=== PATIENT | female | born 1975 | race Caucasian/White ===

== ENCOUNTER → 2018-01-01 14:06 | Outpatient (CLI) | payer BC, SELFPAY ==
[2018-01-08 15:16] LABS: HPV Reflexed? NOT INDICATED
== END ==
PROVIDERS: Visit Provider Obstetrics & Gynecology
DX: Z12.4 Encounter for screening for malignant neoplasm of cervix (principal)
CPT/HCPCS: 88175; G0145

== ENCOUNTER → 2018-01-25 14:19 | Outpatient (CLI) | payer BC, SELFPAY | PROVIDERS: Family Provider Family Medicine; PCP Family Medicine; Visit Provider Obstetrics & Gynecology | DX: Z12.31 Encounter for screening mammogram for malignant neoplasm of breast (principal) | CPT/HCPCS: 77063; 77067 ==

== ENCOUNTER 2018-02-13 10:25 | Day surgery (SDC) | payer BC, SELFPAY ==
[2018-02-13] VITALS (9 sets, daily range): BP systolic 121–148; BP diastolic 81–93; PULSE 52–92; RESP 16; TEMP 36.6–36.8; O2SAT 92–99; BMI 36.3
[2018-02-13 10:49] LABS: Internal QC Validated? YES +Cl - CLEAR BKGD
[2018-02-13 10:52] LABS: Pregnancy, Urine Negative Negative
[2018-02-13 10:59] LABS: Hematocrit 40.9 % (37-47); Hemoglobin 13.6 g/dl (12.0-15.0); Mean Corp Hgb Conc 33.3 g/gl (32-36); Mean Corpuscular Hgb 29.5 pg (27.0-32.0); Mean Corpuscular Volume 88.7 fL (81-99); Mean Platelet Vol. 9.5 fl (6.2-12.0); Platelet Count 248 K/mm3 (150-450); RBC Distribution Width CV 12.4 % (11.6-14.6); RBC Distribution Width SD 39.7 fl (35.1-43.9); Red Blood Count 4.61 M/mm3 (4.2-5.4); White Blood Count 6.9 K/mm3 (4.4-11.0)
[2018-02-13 11:06] LABS: Scan Indicated on CBC? Y/N NO
--- NOTE | 2018-02-13 12:00 | EMB_PTH ---
PATIENT: WICHO MERIDA LOC: [facility] [place][id number] AGE/SX: 42/F ROOM: RE02/13/[address]: Dr. Tianna Ann MD : 1975 BED: DIS: 02/13/2018 SPEC #: [id number] RECD: 02/13/18 13:50 STATUS: ROBERT MANN #: [id number] ROSA: 02/13/18 12:[address]: Tianna Ann DEPT: SURGICAL PATHOLOGY RECD BY: Mustapha Crespo ENTERED: 02/13/18 14:10 SP TYPE: ENDOM BX/C JACQUELINE DR: Dr. Amina Fernándze MD Tissues: Endometrium, NOS Procedures: Surgery Specimen Level IV HEADER OPERATION: Hysterectomy, D & C, Debra PRE-OP DIAGNOSIS: Menorrhagia TISSUE SUBMITTED: Endometrial curettings MICROSCOPIC DIAGNOSIS Endometrium, curettings: Secretory endometrium. AM:venkata 02/14/18 MICROSCOPIC DESCRIPTION Slides are reviewed. GROSS DESCRIPTION Received in fixative is one container labeled with the patient's name and designated endometrial curettings. The specimen consists of multiple irregular fragments of red-ayala soft tissue that in aggregate measure 2 x 1.5 x 0.2 cm. The specimen is totally submitted in one cassette. / AM:venkata 02/13/18 TC:5 CPT: 43555
--- NOTE | 2018-02-13 12:00 | PCM.DC.D&C ---
Discharge Diet: No Restrictions Discharge Activity: May not drive while taking narcotic pain medications., May Shower, May Take a Tub Bath Return to work on:: 02/15/18 May resume sexual activity in: 1 week Call your doctor if you observe: Fever of 101 or Higher, Inability to have a bowel movement, Uncontrolled pain Allergies/Adverse Reactions: Allergies No Known Allergies Allergy (Verified 02/06/18 15:03) Medications to take at Discharge L.acidoph,Paracasei, B.lactis [Probiotic] 1 each PO QODAY 02/06/18 Multivits,Ca,Minerals/Iron/FA [Women's Daily Formula Caplet] 1 each PO DAILY 02/06/18 Oxycodone [Oxyir] 5 - 10 mg PO Q6H PRN PRN 2 Days #8 tablet 02/13/18 The following prescriptions were given: Oxycodone [Oxyir] 5 - 10 mg PO Q6H PRN PRN 2 Days #8 tablet PRN Reason: Mod-Severe Pain (4-10/10) Primary Care Physician: Amina Fernández MD [Primary Care Provider] - Test Results: Test results from this visit will be discussed in further detail at your follow-up appointment, if applicable. Please Follow Up With: Tianna Ann MD - [phone] When: in 2 wk for postop check up. Proposed Discharge Date: 02/13/18
--- NOTE | 2018-02-13 13:13 | PCM.OP.BLANK ---
Operative Report Date of Procedure: 02/13/18 PROCEDURE: Hysteroscopy, Dilation and curettage, Debra endometrial ablation Preoperative Diagnosis: Excessive bleeding in premenopause, menorrhagia Postop diagnosis: Excessive bleeding in premenopause, menorrhagia Anesthesia: MAC IV sedation, Alycia Covarrubias CRNA Paracervical block 10 cc of 1% lidocaine with 1: 100,000 epinephrine Surgeon: Tianna Ann MD EBL: Minimal for case Drains: Red Niño, minimal clear yellow urine Complications: none Fluids: replacement Findings: Nonparous appearing cervix Normal appearing , fluffy endometrium. Tubal ostia visualized bilaterally. Narrative account After the R,B,Alternatives of the procedure were reviewed with the patient , informed consent was obtained. The patient was taken to the operating room with an IV running and placed in dorsal supine position on the operating table. She was given general anesthesia, and repositioned to the dorsal lithotomy position and prepped and draped in the usual sterile fashion. A graves speculum was placed into the vagina and the cervix was brought into view. The cervix was nonparous appearing. A paracervical block was instilled as above. A single toothed tenaculum was applied to the anterior lip of the cervix. The cervix was then sequentially dilated to allow admission of the hysteroscope into the endometrial cavity. The hysteroscopy was performed with findings noted as above. Photos were taken showing both tubal ostia and a fluffy appearing endometrium. A sharp curettage was performed and multiple small pieces of tissue were withdrawn and set aside for later pathology review. Upon completion of the D and C, the Debra endometrial ablation device was placed into the uterus to the fundus, the endometrial canal length was 5.5 cm. The balloon seal at the cervix was inflated and the CO2 test was passed. The Debra endometrial ablation cycle was then completed, and the device was withdrawn. Excellent hemostasis was noted. The single toothed tenaculum was removed from the cervix and a RayTec was used to remove any remaining tissue and blood from the upper vagina and cervix. The procedure was terminated. The speculum was removed. The patient was returned to dorsal supine position and awakened from general anesthesia, and transferred to the recovery room bed in stable condition after tolerating the procedure well. Sponge, lap, needle and instrument counts were correct x two. Medications given intraoperatively included 10cc of 1% lidocaine with 1:100,000 epinephrine. Toradol 30 mg IV x one. For a complete listing of medications given preop and intraoperatively , please see the anesthesia record.
[2018-02-13] MEDS: oxyCODONE 5 MG Tablet PO (13:53)
== END 2018-02-13 14:13 | disposition home or self-care (01) ==
LOC: SDC 10:26 → AC 10:27
PROVIDERS: Family Provider Family Medicine; PCP Family Medicine; Visit Provider Obstetrics & Gynecology
PROC: 0U5B8ZZ Destruction of Endometrium, Via Natural or Artificial Opening Endoscopic (ICD-10-PCS; CPT 58558; principal; 2018-02-13 11:45)
DX: N92.4 Excessive bleeding in the premenopausal period (principal)
CPT/HCPCS: 58563; 81025; 85027; 88305; J7120; J2405

== ENCOUNTER → 2018-05-01 12:30 | Outpatient (CLI) | payer BC, SELFPAY ==
--- NOTE | 2018-05-01 12:40 | MRI_ITS ---
STUDY: MRI BRAIN WITH AND WITHOUT CONTRAST REASON FOR EXAM: Female, 43 years old. Dizziness with bilateral tinnitus TECHNIQUE: Standardized multiplanar fat and water weighted pulse sequences were obtained. 10 ml of Gadavist contrast material was administered intravenously for the contrast portion of the examination. COMPARISON: None. FINDINGS: Normal size of the ventricles and extra-axial spaces for the patient's age. Minor periventricular white matter ischemic changes greater in the right cerebral hemisphere without mass effect or restricted diffusion Normal bilateral basal ganglia. Normal thalami. There is no extra-axial fluid accumulation. Normal flow voids within the major intracranial circulation suggesting patency by spin echo criteria. Normal venous enhancement. There is no enhancing intra-axial or extra-axial abnormality. Normal sella turcica, pituitary gland, infundibular stalk, optic chiasm and hypothalamus. Normal tectal plate and pineal gland. Normal midbrain, irma and medulla. Normal cerebellum. Normal basal cisterns. Normal bilateral temporal bones. Normal bilateral internal auditory canals. No demonstrated orbital abnormality, within the constraints of a routine brain study. There is mucosal thickening of the maxillary and ethmoid sinuses bilaterally.. Normal calvarium and skull base. Normal visualized soft tissue structures. Normal visualized upper cervical spine. MRI/Brain W/WO Contrast IMPRESSION: Minor periventricular white matter ischemic changes without evidence for acute infarct No evidence for acoustic or vestibular schwannoma Electronically Signed: Kevin Lee MD at 16:34 EST , Service support ,
== END ==
PROVIDERS: Family Provider Family Medicine; PCP Family Medicine; Referring Provider Otolaryngology Otolaryngology/Facial Plastic Surgery; Visit Provider Otolaryngology Otolaryngology/Facial Plastic Surgery
DX: R42 Dizziness and giddiness (principal)
CPT/HCPCS: 70553; A9585

== ENCOUNTER 2018-12-13 09:47 | Emergency (ER) | payer BC, SELFPAY ==
[2018-12-13 09:48] VITALS: BP 163/89; PULSE 85; RESP 18; TEMP 37; O2SAT 98; BMI 34.8
--- NOTE | 2018-12-13 09:56 | CT_ITS ---
STUDY: CT ABDOMEN AND PELVIS WITH CONTRAST REASON FOR EXAM: Female, 43 years old. RADIATION DOSAGE (If Supplied By Facility): CTDIvol = ( 20.90 ) mGy, DLP = ( 1530.39 ) mGycm TECHNIQUE: Transaxial images were obtained from the dome of the diaphragm to the symphysis pubis without oral contrast. 100 IV Isovue 300 was administered. Sagittal and coronal images were reconstructed. Individualized dose optimization techniques were used for this CT. COMPARISON: None. FINDINGS: The visualized lung bases are unremarkable. The visualized portions of the heart are within normal limits. The liver and spleen are normal in size and attenuation no focal lesion or abnormal enhancement. The gallbladder is unremarkable Normal bilateral adrenal glands. Normal right kidney. Normal left kidney. No hydronephrosis is also formation seen in either kidney. Normal visualized stomach. Normal small intestine. Are within normal limits. There is diverticular disease involving the descending and sigmoid colon without obvious diverticulitis. The appendix is visualized and appears normal. No evidence of mesenteric or periaortic lymphadenopathy. Normal abdominal aorta. Normal inferior vena cava. Normal retroperitoneum. Normal urinary bladder. Normal abdominal wall. Normal osseous structures. There is evidence also pelvic congestion manifested by dilated veins particularly in the left adnexal region associated with dilated left gonadal vein that is draining into the left renal vein. Urinary bladder and uterus are unremarkable. CT/Abdomen/Pelvis W IV Cont ONLY IMPRESSION: No evidence of diverticulosis of the descending and sigmoid colon without diverticulitis Evidence of venous congestion left side of the pelvis as mentioned. Electronically Signed: Ruel Mcleod, at 11:12 EDT Tel , Service support ,
[2018-12-13 10:14] LABS: Mucous, Urine 0 SEEN /hpf (<or=2+); White Blood Cells 0 SEEN /hpf (0-5)
[2018-12-13] MEDS: 0.9% Normal Saline 1,000 ML 1000 ML IV (10:15)
[2018-12-13 10:17] LABS: Color, Urine Yellow (Yellow); Glucose, Dipstick Normal (Normal); Ketone-Dipstick Negative (Negative); Leukocyte Esterase-Dipstick Negative /ul (Negative); Nitrite-Dipstick Negative (Negative); Occult Blood-Urine 10 /ul (Negative); Protein-Dipstick 15 mg/dl (Negative); Specific Gravity, Urine 1.015 (1.002-1.030); Urine Bilirubin Dipstick Negative (Negative); Urine Clarity Sl. Cloudy (Clear); Urine Urobilinogen 1 mg/dl (Normal)
[2018-12-13] MEDS: Ondansetron 4 MG/2 ML Vial IV (10:17)
[2018-12-13] MEDS: Ketorolac 30 MG/ML Syringe IV (10:17)
--- NOTE | 2018-12-13 10:17 | ED.DCSUM_ITS ---
- ER Visit Summary Date of Service: 12/13/18 Chief Complaint: Abdominal pain, nausea History of Present Illness: The patient is a 43 F who is otherwise healthy with only surgical history of prior resents to the emergency department abdominal pain and nausea. The patient states that about 3 days ago, she began have some cramping in the suprapubic area. She also had some increasing urinary frequency. She has over the past 2 days, she is been increasingly nauseated. She states the pain has been almost like a band across her lower abdomen. She felt that she was constipated. She took a stool softener with little improvement. She has been having some lower back pain also. She denies any fevers or chills. She is on no other daily medication. Physical Examination: Vital signs reviewed General: Well-nourished, well-developed Head: Normocephalic, atraumatic Eyes: Pupils equal and reactive, extraocular muscles intact Neck, supple, no lymphadenopathy Heart: Regular rate and rhythm Respiratory: No distress, clear bilaterally Abdomen: Soft, nontender, nondistended, no peritoneal signs Back: Nontender Extremities: Nontender, no edema, no cords Skin: Normal color no rash Neuro: Alert and oriented, no focal or lateralizing deficits Test Results: [] Emergency Department Course and Treatment: Screening labs obtained. Is unremarkable. Urine shows no evidence of infection. CT demonstrates divertic ulosis, but no definitive evidence of diverticulitis. However, the patient had constipation, left lower quadrant pain, nausea. I do feel the most prudent thing will be to treat her for an early diverticulitis flare. I discussed this with the patient she is comfortable with this plan. She will be started on Cipro and Flagyl. She will be discharged home. Treatment Plan: [] Disposition: Discharged Impression: 1. Acute diverticulitis This note was generated with [employer] dictation software. It may contain incorrect words, spelling, and punctuation that were not noted in review of the chart prior to signing ED Disposition - Plan for ED Patient: Disposition: Home or Assisted Living Instructions: Diverticulitis Prescriptions: Ciprofloxacin [Cipro] 500 mg PO BID #14 tab Prescription Printed Docusate Sodium [Colace] 100 mg PO DAILY #20 cap Prescription Printed metroNIDAZOLE [Flagyl] 500 mg PO Q8H #21 tab Prescription Printed Referrals: Amina Fernández MD [Primary Care Provider] -
[2018-12-13 10:19] LABS: Internal QC Validated? YES +Cl - CLEAR BKGD; Pregnancy, Urine Negative Negative
[2018-12-13 10:20] LABS: Absolute Lymphocyte Count 2.01 X10^3/ul (0.83-4.51); Absolute Neutrophil Count 3.5 X10^3/uL (2.0-7.7); Basophil# 0.01 X10^3/uL; Basophil% 0.2 % (0-1); Eosinophil# 0.15 X10^3/uL; Eosinophils% 2.4 % (0-5); Hematocrit 38.3 % (37-47); Hemoglobin 13.1 g/dl (12.0-15.0); Lymphocyte # 2.01 X10^3/ul (4.0); Lymphocyte % 32.3 % (19-41); Mean Corp Hgb Conc 34.2 g/gl (32-36); Mean Corpuscular Volume 87.8 fL (81-99); Mean Platelet Vol. 9.6 fl (6.2-12.0); Monocyte# 0.58 X10^3/uL; Monocyte% 9.3 % (0-10); Neutrophil # 3.46 X10^3/uL (2.7-7.7); Neutrophil % 55.6 % (47-70); POSITIVE COUNT NO; POSITIVE DIFFERENTIAL NO; POSITIVE MORPHOLOGY NO; Platelet Count 285 K/mm3 (150-450); RBC Distribution Width CV 12.3 % (11.6-14.6); RBC Distribution Width SD 38.8 fl (35.1-43.9); Red Blood Count 4.36 M/mm3 (4.2-5.4); White Blood Count 6.2 K/mm3 (4.4-11.0)
[2018-12-13 10:24] LABS: Bacteria 1+ /hpf (None Seen); Red Blood Cells-Urine 0-5 SEEN /hpf (0-5); Squamous Epithelial Cells - UA 5-10 SEEN /hpf (5-10)
[2018-12-13 10:34] LABS: AST(SGOT) 15 U/L (15-37); Alanine Aminotransfer ALT/SGPT 27 U/L (13-56); Albumin, Serum 3.8 g/dL (3.2-5.0); Alkaline Phosphatase 59 U/L (45-117); Anion Gap 4 (5-15); BUN 14 mg/dL (7-18); Bilirubin, Direct 0.13 mg/dL (0.00-0.30); Calcium,Total 9.6 mg/dL (8.5-10.1); Chloride 106 mmol/L (98-107); Creatinine, Serum 0.78 mg/dL (0.55-1.02); EST Glomerular Filtration Rate 87 mL/min (>60); Est Glom Filt Rate - Afr Amer 105 mL/min (>60); Estimated Creatinine Clearance 81.96 ml/min; Glucose 97 mg/dL (74-106); Lipase 149 U/L (73-393); Potassium 3.9 mmol/L (3.5-5.1); Protein, Total 7.8 g/dL (6.4-8.2); Sodium Level 139 mmol/L (136-145)
[2018-12-13] MEDS: Ciprofloxacin 500 MG Tablet PO (11:30)
[2018-12-13] MEDS: metroNIDAZOLE 500 MG Tablet PO (11:30)
== END 2018-12-13 11:36 | disposition home or self-care (01) ==
LOC: ED 10:02
PROVIDERS: Emergency Provider Emergency Medicine; Family Provider Family Medicine; PCP Family Medicine
DX: K57.92 Diverticulitis of intestine, part unspecified, without perforation or abscess without bleeding (principal)
CPT/HCPCS: 74177; 80048; 80076; 81001; 81025; 83690; 85025; 96361; 96374; 96375; 99284; J7030; Q9967; A4216; J2405

== ENCOUNTER → 2019-05-16 09:29 | Outpatient (CLI) | payer BC, SELFPAY ==
[2019-05-16 12:20] LABS: Anion Gap 8 (5-15); BUN 10 mg/dL (7-18); BUN/Creat Ratio 13.6 RATIO (10-20); Calcium,Total 9.5 mg/dL (8.5-10.1); Chloride 104 mmol/L (98-107); Cholesterol 200 mg/dL (200); Creatinine, Serum 0.74 mg/dL (0.55-1.02); EST Glomerular Filtration Rate 92 mL/min (>60); Est Glom Filt Rate - Afr Amer 111 mL/min (>60); Glucose 130 mg/dL (74-106); High Density Lipoprotein 38 mg/dL; Potassium 3.9 mmol/L (3.5-5.1); Sodium Level 139 mmol/L (136-145); Triglycerides 148 mg/dL; Very Low Density Lipoprotein 30 mg/dL (5-40)
== END ==
PROVIDERS: Family Provider Family Medicine; PCP Family Medicine; Referring Provider Family Medicine; Visit Provider Family Medicine
DX: R03.0 Elevated blood-pressure reading, without diagnosis of hypertension (principal)
CPT/HCPCS: 36415; 80048; 80061

== ENCOUNTER → 2019-05-21 15:35 | Outpatient (CLI) | payer BC, SELFPAY ==
[2019-05-26 12:07] LABS: Age Gdln ACOG Testing 30-65 (.)
[2019-05-26 16:23] LABS: HPV APTIMA, High Risk Negative (Negative); HPV Reflexed? YES, CHARGE PATIENT
== END ==
PROVIDERS: Visit Provider Obstetrics & Gynecology
DX: Z12.4 Encounter for screening for malignant neoplasm of cervix (principal)
CPT/HCPCS: 87624; 88175; G0145

== ENCOUNTER → 2019-06-02 13:56 | Outpatient (CLI) | payer BC, SELFPAY ==
--- NOTE | 2019-06-02 13:58 | BI_ITS ---
MAMMOGRAPHY - BILATERAL SCREENING REASON FOR EXAM: Female, 44 years old. Routine annual screening examination. PERTINENT HISTORY: Mother with breast cancer. Grandmother with breast cancer. TECHNIQUE: Digital bilateral breast ros (3D mammographic acquisition) in the CC and MLO projections. 2-D mediolateral oblique (MLO) and craniocaudad (CC) views of both breasts were obtained. CAD: Full Field Digital Mammography with Computer Added Detection was performed. COMPARISON: Comparison is made with prior study dated January 25, 2018. FINDINGS: Breast Composition: The breasts are heterogeneously dense, which may obscure small masses. There are no dominant masses or suspicious calcifications. Stable small bilateral axillary lymph nodes. No other significant abnormalities are identified. There has been no significant change since the prior study. BI/SCREEN MAMM (CAD) W/ROS BILAT IMPRESSION: Stable bilateral screening mammogram. Yearly follow-up mammogram recommended. (A) ASSESSMENT CATEGORY: BIRADS Category 2: Benign. A letter regarding these results will be sent to the patient by the facility within 30 days. Approximately 10% of breast cancers are not detected by mammography. A normal mammogram should not delay biopsy of a clinically suspicious abnormality. [id number] Electronically Signed: Vitor Patricio, at 15:02 EST , Service support ,
--- NOTE | 2019-06-02 13:58 | US_ITS ---
STUDY: ULTRASOUND BREAST - RIGHT REASON FOR EXAM: Female, 44 years old. Abnormal mammogram. TECHNIQUE: Axial and longitudinal images of the RIGHT breast were performed with a high resolution ultrasound transducer. # OF IMAGES: 39 COMPARISON: Comparison is made with prior mammogram done earlier today. FINDINGS: RIGHT Breast: The entire right breast was examined by ultrasound. No sonographic abnormality is seen. US/Breast Limited Unilateral IMPRESSION: No sonographic abnormality is seen. ASSESSMENT CATEGORY: BIRADS Category 1: Negative. A letter regarding these results will be sent to the patient by the facility within 30 days. Electronically Signed: Vitor Patricio, at 15:35 EST , Service support ,
== END ==
PROVIDERS: Family Provider Family Medicine; PCP Family Medicine; Referring Provider Obstetrics & Gynecology; Visit Provider Obstetrics & Gynecology
DX: Z12.31 Encounter for screening mammogram for malignant neoplasm of breast (principal); R92.8 Other abnormal and inconclusive findings on diagnostic imaging of breast; Z80.3 Family history of malignant neoplasm of breast
CPT/HCPCS: 76642; 77063; 77067

== ENCOUNTER → 2020-07-16 14:05 | Outpatient (CLI) | payer BC, SELFPAY ==
[2020-07-21 08:18] LABS: HPV APTIMA, High Risk Negative (Negative)
== END ==
PROVIDERS: PCP Family Medicine; Visit Provider Student in an Organized Health Care Education/Training Program
DX: Z12.4 Encounter for screening for malignant neoplasm of cervix (principal)
CPT/HCPCS: 87624; 88175; G0145

== ENCOUNTER → 2020-07-29 07:00 | Outpatient (CLI) | payer BC, SELFPAY ==
--- NOTE | 2020-07-29 07:02 | BI_ITS ---
MAMMOGRAPHY - BILATERAL SCREENING REASON FOR EXAM: Female, 45 years old. Routine annual screening examination. PERTINENT HISTORY: Mother with breast cancer. Grandmother with breast cancer. TECHNIQUE: Digital bilateral breast ros (3D mammographic acquisition) in the CC and MLO projections. 2-D mediolateral oblique (MLO) and craniocaudad (CC) views of both breasts were obtained. CAD: Full Field Digital Mammography with Computer Added Detection was performed. COMPARISON: Comparison is made with prior study dated 06/02/2019 and 01/25/2018. FINDINGS: Breast Composition: The breasts are heterogeneously dense, which may obscure small masses. There are no dominant masses or suspicious calcifications. Stable small benign-appearing bilateral axillary lymph nodes. No other significant abnormalities are identified. There has been no significant change since the prior study. BI/SCRN MAMM (CAD)W/ROS BILAT IMPRESSION: Stable bilateral screening mammogram. Yearly follow-up mammogram recommended. (A) ASSESSMENT CATEGORY: BIRADS Category 2: Benign. A letter regarding these results will be sent to the patient by the facility within 30 days. Approximately 10% of breast cancers are not detected by mammography. A normal mammogram should not delay biopsy of a clinically suspicious abnormality. [id number] Electronically Signed: Vitor Patricio MD at 10:36 EST , Service support ,
== END ==
PROVIDERS: PCP Family Medicine; Referring Provider Student in an Organized Health Care Education/Training Program; Visit Provider Student in an Organized Health Care Education/Training Program
DX: Z12.31 Encounter for screening mammogram for malignant neoplasm of breast (principal)
CPT/HCPCS: 77063; 77067

== ENCOUNTER → 2021-05-06 07:52 | Outpatient (CLI) | payer BC, SELFPAY ==
[2021-05-09 07:06] LABS: Barley, Whole Grain <0.10 kU/L (Class 0); Garlic <0.10 kU/L (Class 0); Gluten <0.10 kU/L (Class 0); Milk (Cow) <0.10 kU/L (Class 0); Onion <0.10 kU/L (Class 0); Salmon <0.10 kU/L (Class 0); Tomato <0.10 kU/L (Class 0); Wheat <0.10 kU/L (Class 0)
[2021-05-09 13:27] LABS: Peanut <0.10 kU/L (Class 0); Turkey <0.10 kU/L (Class 0)
== END ==
PROVIDERS: PCP Family Medicine; Visit Provider Otolaryngology Otolaryngology/Facial Plastic Surgery
DX: T78.40XA Allergy, unspecified, initial encounter (principal)
CPT/HCPCS: 36415; 86003

== ENCOUNTER 2021-08-01 07:02 | Outpatient (CLI) | payer BC, SELFPAY ==
--- NOTE | 2021-08-01 07:12 | BI_ITS ---
MAMMOGRAPHY - BILATERAL SCREENING REASON FOR EXAM: Female, 46 years old. Routine annual screening examination. PERTINENT HISTORY: Mother with breast cancer. Grandmother with breast cancer. TECHNIQUE: Digital bilateral breast ros (3D mammographic acquisition) in the CC and MLO projections. 2-D mediolateral oblique (MLO) and craniocaudad (CC) views of both breasts were obtained. CAD: Full Field Digital Mammography with Computer Added Detection was performed. COMPARISON: Comparison is made with prior study dated 07/29/2020 and 06/02/2019. FINDINGS: Breast Composition: The breasts are extremely dense, which lowers the sensitivity of mammography. There are no dominant masses or suspicious calcifications. No other significant abnormalities are identified. There has been no significant change since the prior study. BI/SCRN MAMM (CAD)W/ROS BILAT IMPRESSION: Stable bilateral screening mammogram. Yearly follow-up mammogram recommended. (A) ASSESSMENT CATEGORY: BIRADS Category 1: Negative. A letter regarding these results will be sent to the patient by the facility within 30 days. Approximately 10% of breast cancers are not detected by mammography. A normal mammogram should not delay biopsy of a clinically suspicious abnormality. [id number] Electronically Signed: Vitor Patricio MD at 8:17 EST ,
== END 2021-08-01 23:59 | disposition home or self-care (01) ==
LOC: OPBI 07:10
PROVIDERS: PCP Family Medicine; Referring Provider Student in an Organized Health Care Education/Training Program; Visit Provider Student in an Organized Health Care Education/Training Program
DX: Z12.31 Encounter for screening mammogram for malignant neoplasm of breast (principal)
CPT/HCPCS: 77063; 77067

== ENCOUNTER 2021-09-13 14:57 | Outpatient (CLI) | payer BC, SELFPAY ==
[2021-09-20 11:10] LABS: HPV APTIMA, High Risk Negative (Negative)
== END 2021-09-13 23:59 | disposition home or self-care (01) ==
PROVIDERS: PCP Family Medicine; Visit Provider Student in an Organized Health Care Education/Training Program
DX: Z12.4 Encounter for screening for malignant neoplasm of cervix (principal)
CPT/HCPCS: 87624; 88175; G0145

== ENCOUNTER → 2022-07-21 | Outpatient (CLI) | payer BC, SELFPAY ==
[2022-07-21 09:58] LABS: Absolute Lymphocyte Count 2.02 X10^3/uL (0.83-4.51); Absolute Neutrophil Count 3.4 X10^3/uL (2.0-7.7); Basophil# 0.04 X10^3/uL; Basophil% 0.7 % (0-1); Eosinophil# 0.08 X10^3/uL; Eosinophils% 1.3 % (0-5); Hematocrit 42.9 % (37-47); Hemoglobin 15.1 g/dL (12.0-15.0); Lymphocyte # 2.02 X10^3/ul (0.83-4.51); Lymphocyte % 33.7 % (19-41); Mean Corp Hgb Conc 35.2 g/dL (32-36); Mean Corpuscular Hgb 30.4 pg (27.0-32.0); Mean Corpuscular Volume 86.3 fL (81-99); Monocyte# 0.43 X10^3/uL; Monocyte% 7.2 % (0-10); NRBC Flagged by Analyzer 0 % (0-5); Neutrophil # 3.42 X10^3/uL (2.7-7.7); Neutrophil % 56.9 % (47-70); Platelet Count 247 K/mm3 (150-450); RBC Distribution Width CV 11.9 % (11.6-14.6); RBC Distribution Width SD 37.4 fl (35.1-43.9); Red Blood Count 4.97 M/mm3 (4.2-5.4)
[2022-07-21 10:49] LABS: Microalbumin:Creatinine Ratio 784.9 mg/g CRE (<30 mg/g CRE)
[2022-07-21 10:50] LABS: Hemoglobin A1c 10.6 % (3.8-5.6)
[2022-07-21 11:10] LABS: ALB/GLOB Ratio 1.3 RATIO (0.9-2.4); AST(SGOT) 25 U/L (15-37); Alanine Aminotransfer ALT/SGPT 47 U/L (13-56); Albumin, Serum 4.3 g/dL (3.2-5.0); Alkaline Phosphatase 89 U/L (45-117); Anion Gap 12 (5-15); BUN 12 mg/dL (7-18); BUN/Creat Ratio 14.8 RATIO (10-20); Calcium,Total 9.6 mg/dL (8.5-10.1); Chloride 99 mmol/L (98-107); Cholesterol 188 mg/dL (200); Creatinine, Serum 0.81 mg/dL (0.55-1.02); EST Glomerular Filtration Rate 81 mL/min (>60); Est Glom Filt Rate - Afr Amer 98 mL/min (>60); Globulin 3.4 g/dL (2.2-4.2); Glucose 329 mg/dL (74-106); High Density Lipoprotein 36 mg/dL; Potassium 3.9 mmol/L (3.5-5.1); Protein, Total 7.7 g/dL (6.4-8.2); Sodium Level 135 mmol/L (136-145); Thyroid Stim Hormone (TSH) 1.87 uIU/mL (0.358-3.74); Triglycerides 182 mg/dL; Very Low Density Lipoprotein 36 mg/dL (5-40)
== END | disposition home or self-care (01) ==
LOC: MFPLAB 09:13
PROVIDERS: PCP Family Medicine; Referring Provider Family Medicine; Visit Provider Family Medicine
DX: E11.9 Type 2 diabetes mellitus without complications (principal)
CPT/HCPCS: 36415; 80053; 80061; 82043; 82570; 83036; 84443; 85025

== ENCOUNTER 2022-07-22 21:16 | Emergency (ER) | payer BC, SELFPAY ==
[2022-07-22 21:17] VITALS: BP 151/95; PULSE 120; RESP 16; TEMP 36.3; O2SAT 99; BMI 35.3
[2022-07-22] MEDS: 0.9% Normal Saline 1,000 ML 999 ML IV ×2 (21:40→22:43)
--- NOTE | 2022-07-22 21:45 | EKG12_ITS ---
Test Reason : cp Blood Pressure : / mmHG Vent. Rate : 104 BPM Atrial Rate : 104 BPM P-R Int : 142 ms QRS Dur : 076 ms QT Int : 342 ms P-R-T Axes : 024 -02 051 degrees QTc Int : 449 ms Sinus tachycardia Cannot rule out Anterior infarct , age undetermined Abnormal ECG Confirmed by TERRY YUN, AMIE ([id number]), assistant film editor MALIKA REDDY ([id number]) on 07/24/2022 1:17:23 PM Referred By: Confirmed By:AMIE STEWART MD
--- NOTE | 2022-07-22 21:48 | EDS_ITS ---
HPI History of Present Illness Chief Complaint: Chest Pain Detail of Chief Complaint: Polyuria, polydipsia, 10 pound weight loss and chest pain Informant: patient Onset/Context/Timing Onset: Weeks (Hyperglycemic symptoms x2 weeks. Chest pain 1 to 2 hours prior to arrival) Context: Gradual Onset Timing: Continuous Quality: Hyperglycemia and chest pain radiating to the back Location: Mid chest rating to the intrascapular region Current Severity: Mild Maximum Severity: Moderate Worsened by: Possible anxiety Relieved by: Nothing Associated Symptoms Associated Symptoms: Radiation to the back Narrative Narrative: Patient is a 47-year-old woman who was seen by her doctor yesterday and had blood work. Blood work would indicate that she has new onset diabetes. A1c was greater than 10. Patient developed chest pain this evening. This started 1 to 2 hours prior to arrival. She has no known history coronary disease. She has no known history of hypertension, hypercholesterolemia. Patient is not a smoker. There is no family history of coronary disease. There is family history of diabetes. She complains of polyuria, polydipsia, 10 pound weight loss, thirst for the past 2 weeks. She denies fever, chills or night sweats. She does endorse bilateral blurred vision. She does endorse intolerance to greasy food. She had salad with olive oil several hours prior to presentation and onset of her chest discomfort that radiates to the intrascapular region. She denies history of VTE. She has no risk factors for VTE. The chest pain is not pleuritic. She denies hemoptysis or cough. Prior similar symptoms: Yes Recent Illness/Hospitalization: No PFSH PFSH Medical History (Updated 07/22/22 @ 22:[address] Darrick Duron MD) Diabetes HTN (hypertension) Medical History no medical history no medical history Home Medications multivit-iron 18 mg-folic acid 400 mcg-calcium 500 mg-minerals tablet (Women's Daily Formula) 1 ea PO DAILY VITAMIN 02/06/18 [History Last Taken Unknown] metformin 500 mg tablet,extended release 24 hr 500 mg PO DAILY #30 tabs 07/22/22 [Rx Last Taken Unknown] Allergy/AdvReac Type Severity Reaction Status Date / Time amoxicillin Allergy Rash Verified 07/22/22 21:20 Family History (Updated 07/22/22 @ 21:[address] Darrick Duron MD) Father Diabetes Mother Diabetes Social History (Updated 07/22/22 @ 21:[address] Darrick Duron MD) household members: family and children Smoking Status: Never smoker substance use type: does not use ROS ROS ED Constitutional Constitutional ED: Reports weight loss; Denies chills, fever(s), subjective or sweats Eyes Eyes: Reports blurry vision bilateral ENT ENT ED: Denies ear pain, rhinorrhea or sore throat Cardiovascular Cardiovascular: Reports chest pain; Denies orthopnea, palpitations, paroxysmal nocturnal dyspnea or racing heartbeat Respiratory/Chest Respiratory/Chest: Denies cough, dyspnea, dyspnea on exertion, orthopnea, paroxysmal nocturnal dyspnea or sputum Gastrointestinal Gastrointestinal: Reports abdominal pain; Denies diarrhea, melena, nausea or vomiting Genitourinary Genitourinary ED: Denies dysuria, hematuria or urinary frequency Musculoskeletal Musculoskeletal: Reports back pain; Denies arthralgias, myalgias or neck pain Integumentary Denies Abrasions or rash Neurologic Neurologic: Reports weakness and other; Denies headache(s) or paresthesias Psychiatric Psychiatric: Reports anxiety Endocrine Endocrinology: Reports polydipsia and polyuria; Denies cold intolerance or heat intolerance Hematologic/Lymphatic Hematologic/Lymphatic: Reports systems reviewed and no addt'l complaints, except as documented EXAM Physical Exam Const Vital Signs: 07/22/22 21:17 07/22/22 21:52 07/22/22 22:16 Temperature 97.3 F L Temperature Source Temporal Pulse Rate 120 H 90 87 Respiratory Rate 16 16 16 Blood Pressure 151/95 H 154/95 H 132/80 H Blood Pressure Mean 113 114 97 Pulse Ox 99 97 97 Oxygen Delivery Method Room Air Room Air Room Air Positive well nourished, well developed and obese General Appearance ED: well developed and NAD; Negative for cyanotic, diaphoretic or pallor Nutritional Appearance: obese HEENT Reports dry mucous membranes HEENT Narrative: Head is atraumatic normocephalic. Pupils are equal round reactive. Extraocular muscles are intact. Nares is patent. There is no drainage. Ears are normal. Mouth ED: Yes dry mucous membranes Mouth: dry mucous membranes Eyes PERRL and EOMs intact bilaterally General Eye ED: Negative for pale conjunctiva or scleral icterus Neck no lymphadenopathy, supple and no JVD Chest Wall inspection of chest normal and palpation of chest normal Chest Narrative: Patient complain of mild discomfort to palpation of the chest. There is no crepitus appreciated. There is no lesions noted. Resp normal respiratory effort and clear to auscultation bilaterally Cardio regular rhythm, S2 normal heart sound and no murmurs Rate: tachycardic GI normal to inspection, nondistended, normoactive bowel sounds and non-distended; Negative for hepatosplenomegaly GI Narrative: There is mild tenderness in the right upper quadrant. Negative for a clinic nu mber of sign. Back/Spine no CVA tenderness Cervical Spine: Negative for cervical spine tenderness Extremity normal to inspection General Extremety ED: Negative for edema or tenderness General Extremity: Negative for edema Neuro oriented x3, CN's II-XII intact bilaterally and no sensory deficits noted Sensorium / Orientation: alert Psych mental status grossly normal Skin no rashes or lesions noted and no wounds General Skin Exam: Negative for jaundice or pallor MDM MDM MDM Narrative Medical decision making narrative: Patient has symptoms consistent with new onset diabetes. Recent lab results from physician's office were reviewed. Blood sugar was greater than 300. A1c was greater than 10. Clinically patient is dehydrated. Will treat with IV fluids and reassess blood sugar. Because she is complaining of chest pain will evaluate for cardiac etiology versus anxiety versus other causes which would include biliary colic due to cholelithiasis since patient reports intolerance to greasy food and had salad with olive oil 2 to 3 hours prior to the onset of her discomfort. EKG was obtained to rule out acute ischemic changes. Because she presented within an hour or 2 of the onset of the pain troponin was ordered. Lab Data Attestation: I reviewed the patient's lab results. Lab results narrative: CBC is unremarkable basic metabolic panel reveals elevated BUN/creatinine ratio 24:1. Glucose is 278 with a normal CO2 and anion gap. Transaminases and total bili are normal. Lipase is elevated. It is approximately 1.25 times normal. This is nondiagnostic. Since patient reports intolerance to greasy foods and is now complaining of pain rating through to her back will order out ultrasound. We will also start patient on metformin. Labs: Laboratory Results - last 24 hr 07/22/22 07/22/22 21:45 21:45 WBC 8.3 RBC 4.93 Hgb 15.2 H Hct 42.7 MCV 86.6 MCH 30.8 MCHC 35.6 RDW Std Deviation 37.6 RDW Coeff of Eliza 11.9 Plt Count 250 MPV 9.4 Immature Gran % (Auto) 0.100 Neut % (Auto) 52.4 Lymph % (Auto) 38.4 [place] % (Auto) 7.3 Eos % (Auto) 1.3 Baso % (Auto) 0.5 Absolute Neuts (auto) 4.3 Absolute Lymphs (auto) 3.19 Nucleated RBC % 0 Sodium 136 Potassium 3.8 Chloride 101 Carbon Dioxide 25.0 Anion Gap 10 BUN 21 H Creatinine 0.86 Estim Creat Clear Calc 71.33 Est GFR (MDRD) Af Amer 91 Est GFR (MDRD) Non-Af 75 BUN/Creatinine Ratio 24.3 H Glucose 278 H Calcium 9.4 Total Bilirubin 0.50 Direct Bilirubin 0.18 AST 26 ALT 45 Alkaline Phosphatase 80 Troponin I High Sens 4 Total Protein 7.6 Albumin 4.1 Globulin 3.5 Lipase 536 H Rhythm Strip Rhythm Strip: Sinus Tach Rate: 105 Ectopy: None EKG Initial EKG: Attestation: I personally reviewed and interpreted this EKG as follows: Interpretation: Sinus Tachycardia (Ventricular rate is 104. There is decreased anterior force. There is no acute ischemic changes noted. MD interval is 142 ms. QRS duration is 76 ms. QT duration 342 ms. [place] is normal. The sinus tachycardia may be due to dehydration.) Treatment and Re-Evaluation Narrative: Patient sinus tachycardia improved with IV fluids. Discharge Plan Triage Chief Complaint: Chest Pain ED Provider: Darrick Duron Dx/Rx/DC Orders Clinical Impression: New onset type 2 diabetes mellitus, Acute prerenal azotemia, Atypical chest pain, Serum lipase elevation, Borderline high blood pressure, Sinus tachycardia, Acute dehydration Instructions: ED Diabetic Hyperglycemia Prescriptions: New metformin 500 mg tablet extended release 24 hr 500 mg PO DAILY Qty: 30 0RF No Action [id number] [Women's Daily Formula] 1 EACH tablet 1 ea PO DAILY Primary Care Provider: Amina Fernández Referrals: Amina Fernández MD [Primary Care Provider] - 3-5 Days Disposition Disposition: Home, Self Care
[2022-07-22 21:52] VITALS: BP 154/95; PULSE 90; RESP 16; O2SAT 97
[2022-07-22 21:52] LABS: Absolute Lymphocyte Count 3.19 X10^3/uL (0.83-4.51); Absolute Neutrophil Count 4.3 X10^3/uL (2.0-7.7); Basophil# 0.04 X10^3/uL; Basophil% 0.5 % (0-1); Eosinophil# 0.11 X10^3/uL; Eosinophils% 1.3 % (0-5); Hematocrit 42.7 % (37-47); Hemoglobin 15.2 g/dL (12.0-15.0); Lymphocyte # 3.19 X10^3/ul (0.83-4.51); Lymphocyte % 38.4 % (19-41); Mean Corp Hgb Conc 35.6 g/dL (32-36); Mean Corpuscular Hgb 30.8 pg (27.0-32.0); Mean Corpuscular Volume 86.6 fL (81-99); Mean Platelet Vol. 9.4 fl (6.2-12.0); Monocyte# 0.61 X10^3/uL; Monocyte% 7.3 % (0-10); NRBC Flagged by Analyzer 0 % (0-5); Neutrophil # 4.34 X10^3/uL (2.7-7.7); Neutrophil % 52.4 % (47-70); Platelet Count 250 K/mm3 (150-450); RBC Distribution Width CV 11.9 % (11.6-14.6); RBC Distribution Width SD 37.6 fl (35.1-43.9); Red Blood Count 4.93 M/mm3 (4.2-5.4); White Blood Count 8.3 K/mm3 (4.4-11.0)
[2022-07-22 22:15] LABS: AST(SGOT) 26 U/L (15-37); Alanine Aminotransfer ALT/SGPT 45 U/L (13-56); Albumin, Serum 4.1 g/dL (3.2-5.0); Alkaline Phosphatase 80 U/L (45-117); Anion Gap 10 (5-15); BUN 21 mg/dL (7-18); BUN/Creat Ratio 24.3 RATIO (10-20); Bilirubin, Direct 0.18 mg/dL (0.00-0.30); Calcium,Total 9.4 mg/dL (8.5-10.1); Chloride 101 mmol/L (98-107); Creatinine, Serum 0.86 mg/dL (0.55-1.02); EST Glomerular Filtration Rate 75 mL/min (>60); Est Glom Filt Rate - Afr Amer 91 mL/min (>60); Estimated Creatinine Clearance 71.33 ml/min; Globulin 3.5 g/dL (2.2-4.2); Glucose 278 mg/dL (74-106); Lipase 536 U/L (73-393); Potassium 3.8 mmol/L (3.5-5.1); Protein, Total 7.6 g/dL (6.4-8.2); Sodium Level 136 mmol/L (136-145); Troponin-I HS 4 pg/mL (3.0-54.0)
[2022-07-22 22:16] VITALS: BP 132/80; PULSE 87; RESP 16; O2SAT 97
== END 2022-07-23 00:11 | disposition home or self-care (01) ==
PROVIDERS: Emergency Provider Emergency Medicine; PCP Family Medicine; Visit Provider Emergency Medicine
DX: R07.89 Other chest pain (principal); E11.65 Type 2 diabetes mellitus with hyperglycemia; E86.0 Dehydration; R74.8 Abnormal levels of other serum enzymes; R03.0 Elevated blood-pressure reading, without diagnosis of hypertension; R00.0 Tachycardia, unspecified
CPT/HCPCS: 80048; 80076; 83690; 84484; 85025; 93005; 99284; J7030; A4216

== ENCOUNTER → 2022-07-25 | Outpatient (CLI) | payer BC, SELFPAY ==
--- NOTE | 2022-07-25 09:43 | US_ITS ---
STUDY: ABDOMINAL ULTRASOUND - RIGHT UPPER QUADRANT REASON FOR VISIT: Female, 47 years old. Right upper quadrant pain. Elevated lipase. Intolerant of greasy food. TECHNIQUE: Ultrasound evaluation of the right upper quadrant was performed with real-time and static luo-scale imaging. TECHNICAL QUALITY: Adequate. COMPARISON: CT abdomen and pelvis, December 13, 2018. FINDINGS: Liver: The liver measures 15 cm. There is increased echogenicity consistent with fatty infiltration. The bile ducts are within normal limits. There is hepatic color flow. The direction of portal flow is hepatopetal. There is no demonstrated mass lesion. Gallbladder: Normal distended gallbladder. The gallbladder wall measures 2.1 mm. There is a negative sonographic Vann''s sign. There is no pericholecystic fluid. There are no gallstones. Common Bile Duct (C.B.D.): The common bile duct measures 4.1 mm. Pancreas: Normal size of the head, body and proximal tail of the pancreas. The distal tail is obscured by bowel gas. There is normal echogenicity of the pancreas. There is no demonstrated pancreatic mass or cyst. Right Kidney: Normal size of the right kidney. The right kidney measures 12.5 cm. Normal renal cortex. The right cortex measures 1.2 cm. There is no demonstrated renal mass or cyst. There is no right hydronephrosis. US/Gallbladder IMPRESSION: 1. Hepatic steatosis without mass or hepatomegaly. 2. Otherwise normal right upper quadrant abdominal ultrasound. Electronically Signed: Hardeep Monzon DO at 17:08 EST ,
== END | disposition home or self-care (01) ==
LOC: US 09:41
PROVIDERS: PCP Family Medicine; Referring Provider Emergency Medicine; Visit Provider Emergency Medicine
DX: R10.11 Right upper quadrant pain (principal)
CPT/HCPCS: 76705

== ENCOUNTER → 2022-08-04 | Outpatient (CLI) | payer BC, SELFPAY ==
--- NOTE | 2022-08-04 07:34 | BI_ITS ---
MAMMOGRAPHY - BILATERAL SCREENING REASON FOR EXAM: Female, 47 years old. Routine annual screening examination. PERTINENT HISTORY: Mother with breast cancer. TECHNIQUE: Digital bilateral breast ros (3D mammographic acquisition) in the CC and MLO projections. 2-D mediolateral oblique (MLO) and craniocaudad (CC) views of both breasts were obtained. CAD: Full Field Digital Mammography with Computer Added Detection was performed. COMPARISON: Comparison is made with prior study of 08/01/2021 and 07/29/2020. FINDINGS: Breast Composition: The breasts are extremely dense, which lowers the sensitivity of mammography. There are no dominant masses or suspicious calcifications. There is a 7.3 mm well-defined nodule with central fatty hilum in the axillary region of the right breast suggests a very small. Stable small benign-appearing bilateral axillary lymph nodes. No other significant abnormalities are identified. There has been no significant change since the prior study. BI/SCRN MAMM (CAD)W/ROS BILAT IMPRESSION: Stable bilateral screening mammogram. Yearly follow-up mammogram recommended. (A) ASSESSMENT CATEGORY: BIRADS Category 2: Benign. A letter regarding these results will be sent to the patient by the facility within 30 days. Approximately 10% of breast cancers are not detected by mammography. A normal mammogram should not delay biopsy of a clinically suspicious abnormality. [id number] Electronically Signed: Vitor Patricio MD at 8:55 EST ,
== END | disposition home or self-care (01) ==
LOC: OPBI 07:30
PROVIDERS: PCP Family Medicine; Visit Provider Student in an Organized Health Care Education/Training Program
DX: Z12.31 Encounter for screening mammogram for malignant neoplasm of breast (principal)
CPT/HCPCS: 77063; 77067

== ENCOUNTER → 2022-10-04 | Outpatient (CLI) | payer BC, SELFPAY ==
--- NOTE | 2022-10-04 18:35 | CT_ITS ---
STUDY: CT ABDOMEN AND PELVIS WITH CONTRAST REASON FOR EXAM: Female, 47 years old. LLQ pain after antibiotic treatment RADIATION DOSAGE (If Supplied By Facility): CTDIvol = ( 17.23 ) mGy, DLP = ( 1169.71 ) mGycm TECHNIQUE: Transaxial images were obtained from the dome of the diaphragm to the symphysis pubis with oral contrast. IV Gastrografin 100mL Isovue-370 was administered. Sagittal and coronal images were reconstructed. Individualized dose optimization techniques were used for this CT. COMPARISON: December 13, 2018. FINDINGS: The visualized lung bases are unremarkable. The visualized portions of the heart are within normal limits. Normal liver. Normal gallbladder and extrahepatic biliary system. Normal spleen. Normal pancreas. Normal bilateral adrenal glands. Normal right kidney. Normal left kidney. Normal visualized stomach. Normal small intestine. There is diverticulosis, with thickening of the sigmoid colon wall, and left lower quadrant pericolonic inflammation changes consistent with acute diverticulitis. The appendix is visualized and appears normal. Normal abdominal aorta. Normal inferior vena cava. Normal retroperitoneum. Normal urinary bladder. Normal visualized uterus. There is 1.9 cm left ovarian cyst. There is mild free fluid in the pelvis. Normal abdominal wall. There is mild degenerative change of the spine. CT/Abdomen/Pelvis WITH Contrast IMPRESSION: Sigmoid diverticulitis. No obstruction or abscess. Electronically Signed: Trey Frederick MD at 19:55 EDT ,
[2022-10-04 18:41] LABS: CREATININE FINGERSTICK < 0.9 mg/dL (0.55-1.02); EGFR FINGERSTICK > 60.0000 mL/min (>60)
== END | disposition home or self-care (01) ==
PROVIDERS: PCP Family Medicine; Referring Provider Family Medicine; Visit Provider Family Medicine
DX: K57.32 Diverticulitis of large intestine without perforation or abscess without bleeding (principal)
CPT/HCPCS: 74177; Q9967; A4216

== ENCOUNTER → 2022-11-06 | Outpatient (CLI) | payer BC, SELFPAY ==
--- NOTE | 2022-11-06 07:45 | US_ITS ---
STUDY: ULTRASOUND OF THE FEMALE PELVIS - COMPLETE REASON FOR EXAM: Female, 47 years old. Lower quadrant pain LMP: TECHNIQUE: Transabdominal and Transvaginal TECHNICAL QUALITY: Adequate. COMPARISON: CT from 10/04/2022 FINDINGS: The uterus is anteverted and is in a midline position. The uterus measures 8.8 x 5.6 x 3.4 cm. Normal uterine cervix. The endometrium measures 6 mm in thickness, and is hyperechoic. There is no demonstrated endometrial mass. Commercial Cleaner notes 2 uterine fibroids, larger measures 1.9 x 1.6 x 1.3 cm I.U.D. - The patient does not have an I.U.D. The right ovary is visualized. The right ovary measures 2.9 x 3.4 x 2.2 cm. There is no right ovarian cyst or ovarian mass. There is no visualized right adnexal mass or complex lesion. There is normal arterial and normal venous vascularity. The left ovary is visualized. The left ovary measures 3.3 x 3.6 x 2.2 cm. There is a simple 2.5 cm left adnexal cyst. . There is normal arterial and normal venous vascularity. There is no fluid in the cul-de-sac. The bladder is sonographically normal US/Pelvic w/ Transvaginal IMPRESSION: Small uterine fibroids Simple 2.5 cm left ovarian cyst, given patient''s age, follow-up ultrasound in 4-6 weeks recommended to assess stability or resolution No demonstrated free fluid Electronically Signed: Rajeev Webster MD at 8:43 EDT ,
== END | disposition home or self-care (01) ==
PROVIDERS: PCP Family Medicine; Referring Provider Family Medicine; Visit Provider Family Medicine
DX: N83.209 Unspecified ovarian cyst, unspecified side (principal)
CPT/HCPCS: 76830; 76856

== ENCOUNTER → 2023-01-01 | Outpatient (CLI) | payer BC, SELFPAY ==
--- NOTE | 2023-01-01 07:55 | US_ITS ---
INDICATION: OVARIAN CYST left EXAMINATION: Ultrasound US Transvaginal Non-OB TECHNIQUE: Transvaginal (for optimal evaluation of the adnexa) pelvic ultrasound was performed. Grayscale, spectral waveform, and color flow Doppler evaluation of the adnexa. COMPARISON: Pelvic ultrasound November 06, 2022; CT abdomen and pelvis October 04, 2022 FINDINGS: UTERUS: Anteverted. The uterus measures 8.9 x 5.4 x 3.4. There is a more prominent degree of heterogeneity within the myometrium today than on previous study. The technologist has measured 2 incompletely defined zones of hypodense heterogeneity that raise question of fibroids. One is seen anteriorly in the mid to lower uterine segment, measuring 1.7 x 1.5 x 0.8 cm. The second is posterior in the mid to lower uterine segment, measuring 2.3 x 1.9 x 1.1 cm. The endometrial stripe measures 5.5 in AP diameter which is within normal limits. Questionable small nabothian cyst in the cervix RIGHT OVARY: 2.9 x 2.2 x 2.2 cm. Non-enlarged, normal echogenicity. There is normal arterial inflow and venous outflow present in the right ovary. Well-defined 1.13 cm echo echogenicity is likely a cyst/follicle. LEFT OVARY: 3.6 x 3.0 x 1.4 cm. Non-enlarged, normal echogenicity. There is normal arterial inflow and venous outflow present in the left ovary. There are at least 3 well-defined, rounded hypoechoic structures consistent with cysts/follicles. The largest is 1.2 x 1.2 x 0.9 cm. FREE FLUID: None. US/Transvaginal Non- IMPRESSION: 1. Probable bilateral ovarian follicular cysts, as described. It is uncertain if the largest of these on the left correlates with the area of question on prior imaging, but all appear simple and none on the left show an interval increase in size. 2. Notable inhomogeneity of the myometrium, raising question of fibroids. Measurements for 2 are noted above. Electronically Signed: Rajeev Frank MD at 16:21 EDT Reading Location ID and State: [id number] / Unknown , Service support ,
== END | disposition home or self-care (01) ==
PROVIDERS: PCP Family Medicine; Referring Provider Family Medicine; Visit Provider Family Medicine
DX: N83.209 Unspecified ovarian cyst, unspecified side (principal)
CPT/HCPCS: 76830

== ENCOUNTER → 2023-05-22 | Outpatient (CLI) | payer BC, SELFPAY ==
[2023-05-22 17:54] LABS: Creatinine, Urine (random) < 13.00 mg/dL (NO RANGE EST.); Microalbumin,Random Urine 13.5 mg/L (NO RANGE EST.)
[2023-05-22 18:07] LABS: AST(SGOT) 13 U/L (15-37); Alanine Aminotransfer ALT/SGPT 26 U/L (13-56); Albumin, Serum 4.2 g/dL (3.2-5.0); Alkaline Phosphatase 56 U/L (45-117); Anion Gap 7 (5-15); BUN 17 mg/dL (7-18); BUN/Creat Ratio 21.6 RATIO (10-20); Bilirubin, Direct 0.13 mg/dL (0.00-0.30); Calcium,Total 9.7 mg/dL (8.5-10.1); Chloride 104 mmol/L (98-107); Cholesterol 184 mg/dL (200); Creatinine, Serum 0.79 mg/dL (0.55-1.02); EST Glomerular Filtration Rate 84 mL/min (>60); Est Glom Filt Rate - Afr Amer 101 mL/min (>60); Globulin 3.7 g/dL (2.2-4.2); Glucose 110 mg/dL (74-106); High Density Lipoprotein 42 mg/dL; Potassium 3.6 mmol/L (3.5-5.1); Protein, Total 7.9 g/dL (6.4-8.2); Sodium Level 138 mmol/L (136-145); Triglycerides 167 mg/dL; Very Low Density Lipoprotein 33 mg/dL (5-40)
== END | disposition home or self-care (01) ==
LOC: MFPLAB 16:49
PROVIDERS: PCP Family Medicine; Visit Provider Family Medicine
DX: E11.9 Type 2 diabetes mellitus without complications (principal)
CPT/HCPCS: 36415; 80048; 80061; 80076; 82043; 82570

== ENCOUNTER → 2023-08-17 | Outpatient (CLI) | payer BC, SELFPAY ==
--- NOTE | 2023-08-17 07:28 | BI_ITS ---
MAMMOGRAPHY - BILATERAL SCREENING REASON FOR EXAM: Female, 48 years old. Routine annual screening examination. PERTINENT HISTORY: Mother with breast cancer. TECHNIQUE: Digital bilateral breast ros (3D mammographic acquisition) in the CC and MLO projections. 2-D mediolateral oblique (MLO) and craniocaudad (CC) views of both breasts were obtained. CAD: Full Field Digital Mammography with Computer Added Detection was performed. COMPARISON: Comparison is made with prior study dated August 04, 2022 and August 01, 2021. FINDINGS: Breast Composition: The breasts are extremely dense, which lowers the sensitivity of mammography. There are no dominant masses or suspicious calcifications. No other significant abnormalities are identified. There has been no significant change since the prior study. BI/SCRN MAMM (CAD)W/ROS BILAT IMPRESSION: Stable bilateral screening mammogram. Yearly follow-up mammogram recommended. (A) ASSESSMENT CATEGORY: BIRADS Category 1: Negative. A letter regarding these results will be sent to the patient by the facility within 30 days. Approximately 10% of breast cancers are not detected by mammography. A normal mammogram should not delay biopsy of a clinically suspicious abnormality. [id number] Electronically Signed: Vitor Patricio MD at 8:24 EST ,
--- OUTSIDE RECORDS SUMMARY | 2023-08-17 07:52 | XMS RPT_ITS | CCD ---
Author Name Unknown Address [address] [place] [address] Organization [facility] Care Team Providers Care Marble Helper Name Role Phone KLAUS YUN, DR DURAN Primary Care Physician [phone] Allergies Allergy Classification Reported Allergen(s) Allergy Type Date of Onset Reaction(s) Facility (1 source) Amoxicillin; Translations: [amoxicillin] [facility] Medications Current Medications Medication Drug Class(es) Dates Sig (Normalized) Sig (Original) metFORMIN hydrochloride 500 mg oral tablet (1 source) Biguanide Start: 02-23-2023 take 1 tablet by mouth once daily at bedtime MetFORMIN (Eqv-Glucophage XR) 500 mg oral tablet, EXTENDED RELEASE TAKE 1 TABLET BY MOUTH EVERYDAY AT BEDTIME Start Date: 02/23/23 Status: Ordered Multivitamin preparation (1 source) Start: 02-23-2023 take 1 tablet by mouth once daily Multivitamin Dose = 1 tab(s), Oral, Daily, 0 Refill(s) Start Date: 02/23/23 Status: Ordered Results Test Name Value Interpretation Reference Range Facil ity Encounters Encounter Date Encounter Type Care Provider Facility Start: 02-23-2023 End: 02-27-2023 Outreach Lab LIMA TEE MD [facility] Start: 10-22-2017 End: 10-23-2017 Ambulatory [facility] Start: 03-11-2017 End: 03-14-2017 Ambulatory [facility] Procedures Date Procedure Procedure Detail Performing Clinician section LIMA Lombardo MD Destructive procedure LIMA TEE MD Genus Meniscus (organism) AM JEANINE TEE MD Social History Date Type Detail Facility Start: 02-23-2023 Tobacco smoking status Never s moked tobacco (finding) [facility] Sex Assigned At Sex [facility] Evaluation + Plan note 02-23-2023 LaboratoryRadiology Note Date & Type Note Facility 02-23-2023 Evaluation + Plan note Future Scheduled TestsMISC Lab Send out (Blood Specimens) 02/23/23MA Mammo Screening Bilateral w/ Jose De Jesus 08/07/23 [facility] Hospital course Narrative Note Date & Type Note Facility Hospital course Narrative No data available for this section [facility] Hospital Discharge instructions Note Date & Type Note Facility Hospital Discharge instructions No data available for this section [facility] Progress note Note Date & Type Note Facility Progress note No data available for this section [facility] Summary Purpose Family History No Family History Records Found No data available for this section Advance Directives No Advanced Directives Records Found Additional Source Comments INFORMATION SOURCE (unrecogn ized section and content) Patient Care team informatio n (unrecognized section and content) Care Team Personnel Name: RENEE ENRIQUE MD Member Role: Primary Care Physician Address: Address: [address] [place] [address] Care Team Related Persons Name: DINA THOMPSON Address: Home [address] [place] [address] [phone] FOR RECORDS PERTAINING TO PATIENTS WHO ARE OR HAVE BEEN ENROLLED IN A CHEMICAL DEPENDENCY/SUBSTANCEABUSE PROGRAM, SOME INFORMATION MAY BE OMITTED. This clinical summary was aggregated from multiple sources. Caution should be exercised in using it in the provision of clinical care. This summary normalizes information from multiple sources, and as a consequence, information in this document may materially change the coding, format and clinical context of patient data. In addition, data may be omitted in some cases. CLINICAL DECISIONS SHOULD BE BASED ON THE PRIMARY CLINICAL RECORDS. [facility]. provides no warranty or guarantee of the accuracy or completeness of information in this document.
== END | disposition home or self-care (01) ==
PROVIDERS: PCP Family Medicine; Referring Provider Obstetrics & Gynecology Gynecology; Visit Provider Obstetrics & Gynecology Gynecology
DX: Z12.31 Encounter for screening mammogram for malignant neoplasm of breast (principal); Z80.3 Family history of malignant neoplasm of breast
CPT/HCPCS: 77063; 77067

== ENCOUNTER → 2024-10-14 | Outpatient (CLI) | payer BC, SELFPAY ==
--- NOTE | 2024-10-14 07:04 | BI_ITS ---
EXAM: SCRN MAMM (CAD)W/ROS BILAT 10/14/2024 CLINICAL HISTORY: F, Age 49 y/o , SCREENING TECHNIQUE: Bilateral screening digital breast tomosynthesis with 2D and 3D images. Computer aided detection. COMPARISON: Prior exam(s) dated 08/17/2023, 08/04/2022, 08/01/2021, 07/29/2020. FINDINGS: TISSUE DENSITY: The breast tissue is heterogenously dense, which may obscure small masses. The mammogram demonstrates that the patient has dense breasts. Supplemental screening with whole breast ultrasound or MRI may be considered for further evaluation. Bilateral Breast Mammographic Findings: No significant masses, calcifications or other abnormalities are identified. BI/SCRN MAMM (CAD)W/ROS BILAT IMPRESSION: Right Breast: BIRADS 1 NEGATIVE. Left Breast: BIRADS 1 NEGATIVE. OVERALL FINAL ASSESSMENT: BIRADS 1 NEGATIVE. RECOMMENDATION: Routine annual follow-up in 1 Year A letter with findings and recommendations will be mailed to the patient. Reading Location: [id number]
== END | disposition home or self-care (01) ==
LOC: OPBI 07:03
PROVIDERS: PCP Family Medicine; Referring Provider Family Medicine; Visit Provider Family Medicine
DX: Z12.31 Encounter for screening mammogram for malignant neoplasm of breast (principal)
CPT/HCPCS: 77063; 77067

== ENCOUNTER → 2025-04-24 | Outpatient (CLI) | payer BC, SELFPAY ==
--- NOTE | 2025-04-24 09:02 | US_ITS ---
EXAM: DIAG MAMM W/CAD, BILAT; BILAT BRST ROS STAND ALONE; BREAST LIMITED UNILATERAL 04/24/2025 CLINICAL HISTORY: F, Age 50 y/o , PAIN; MASTALGIA RT BREAST TECHNIQUE: Procedure Code: [id number]; BIBILATBRTOM; USBRSTLIMIT Modality: MG; US Procedure: DIAG MAMM W/CAD, BILAT; BILAT BRST ROS STAND ALONE; BREAST LIMITED UNILATERAL. COMPARISON: Prior exam(s) dated 10/14/2024, 08/17/2023, 08/04/2022. FINDINGS: MAMMOGRAM: TISSUE DENSITY: The breasts are heterogeneously dense, which may obscure small masses. The mammogram demonstrates that the patient has dense breasts. Supplemental screening with whole breast ultrasound or MRI may be considered for further evaluation. Bilateral Breast Mammographic Findings: The patient presents with inferior right breast pain. On the present examination, there are no suspicious mammographic findings in the area of patient's reported pain in the inferior right breast. Otherwise, there are no suspicious findings in the right breast. No significant masses, calcifications or other abnormalities are identified in the left breast. ULTRASOUND: Ultrasound performed of the area of patient's reported pain in the inferior right breast at 6 o'clock demonstrate no suspicious sonographic findings. There are no solid masses or abnormal cystic elements. US/Breast Limited Unilateral IMPRESSION: There are no suspicious mammographic or sonographic findings in the area of pat ient's reported pain in the right breast. Clinical management is recommended for the pain. There is no evidence of malignancy in either breast. OVERALL FINAL ASSESSMENT BI-RADS 1: NEGATIVE RECOMMENDATION: Routine annual follow-up in 1 Year Additional Recommendation clinical management is recommended for the right kirit st pain. A letter with findings and recommendations will be mailed to the patient. Reading Location: [id number]
--- NOTE | 2025-04-24 09:07 | BI_ITS ---
EXAM: DIAG MAMM W/CAD, BILAT; BILAT BRST ROS STAND ALONE; BREAST LIMITED UNILATERAL 04/24/2025 CLINICAL HISTORY: F, Age 50 y/o , PAIN; MASTALGIA RT BREAST TECHNIQUE: Procedure Code: [id number]; BIBILATBRTOM; USBRSTLIMIT Modality: MG; US Procedure: DIAG MAMM W/CAD, BILAT; BILAT BRST ROS STAND ALONE; BREAST LIMITED UNILATERAL. COMPARISON: Prior exam(s) dated 10/14/2024, 08/17/2023, 08/04/2022. FINDINGS: MAMMOGRAM: TISSUE DENSITY: The breasts are heterogeneously dense, which may obscure small masses. The mammogram demonstrates that the patient has dense breasts. Supplemental screening with whole breast ultrasound or MRI may be considered for further evaluation. Bilateral Breast Mammographic Findings: The patient presents with inferior right breast pain. On the present examination, there are no suspicious mammographic findings in the area of patient's reported pain in the inferior right breast. Otherwise, there are no suspicious findings in the right breast. No significant masses, calcifications or other abnormalities are identified in the left breast. ULTRASOUND: Ultrasound performed of the area of patient's reported pain in the inferior right breast at 6 o'clock demonstrate no suspicious sonographic findings. There are no solid masses or abnormal cystic elements. BI/Bilat Brst Ros Stand Alone IMPRESSION: There are no suspicious mammographic or sonographic findings in the area of pat ient's reported pain in the right breast. Clinical management is recommended for the pain. There is no evidence of malignancy in either breast. OVERALL FINAL ASSESSMENT BI-RADS 1: NEGATIVE RECOMMENDATION: Routine annual follow-up in 1 Year Additional Recommendation clinical management is recommended for the right kirit st pain. A letter with findings and recommendations will be mailed to the patient. Reading Location: [id number]
== END | disposition home or self-care (01) ==
LOC: OPBI 09:01
PROVIDERS: PCP Family Medicine; Referring Provider Obstetrics & Gynecology Gynecology; Visit Provider Obstetrics & Gynecology Gynecology
DX: N64.4 Mastodynia (principal); Z80.3 Family history of malignant neoplasm of breast
CPT/HCPCS: 76642; 77062; 77066; G0279